=== PATIENT | female | born 1980 | race American Indian/Alaskan Native ===

== ENCOUNTER 2020-06-18 05:56 | Day surgery (SDC) | payer BC, OTHER ==
[2020-06-17 09:55] LABS: Hematocrit 36.4 % (30.3-42.9); Hemoglobin 12.3 gm/dl (10.1-14.3); Mean Corpuscular HGB Conc 34 % (30-34); Mean Corpuscular Volume 93 fl (79-97); Platelet Count 266 K/mm3 (140-440)
[2020-06-17 10:02] LABS: Red Cell Distribution Width 26.7 % (13.2-15.2)
--- NOTE | 2020-06-17 14:55 | History and Physical Report ---
History of Present Illness Date of examination: 06/16/20 History of present illness: Patient has been reassessed/reevaluated H&P has been reviewed. No interval changes. This is a 39 years old female who presents with menstrual disorder. The symptoms began >1 year ago. She complains of irregular menses, heavy bleeding, dysmenorrhea, clotting, fatigue and cramping, but denies mid-cycle spotting, lack of menses, history of ovarian cysts, history of thyroid disease, history of fibroids, history of PCOS, history of bleeding disorder and lightheadedness. Interval between menses is 15-20 days. Menstrual flow lasts > 7 days. Patient's work up has included hysterosonogram which revealed beign endometrial biopsy no myomas or intracavity lesions Patient desires definitive treatment Patient desires least invasive procedure Vital Signs: Patient Profile: 39 Years Old Female LMP: 05/29/2020 Height: 60.0 inches (152.40 cm) Weight: 179 pounds BMI: 34.95 Temp: 97.5 degrees F Menstrual History: LMP (date): 05/29/2020 Current Method of Contraception: None Past History : 6 Term Births: 3 Premature Births: 1 Living Children: 5 Para: 4 Mult. Births: 1 Prev : 2 Aborta: 2 Elect. Ab: 0 Spont. Ab: 2 Ectopics: 0 [employer] History Operations: Knee Arthroscopy (2015) (2004) with Tubal Ligation (2007) Transsphenoidal hypophysectomy (02/2019) Abnormal PAP: negative Uterine Anomaly: negative Infection History HIV Risk Eval: no Personal hx. of genital herpes: no Hx of STD: None Current Allergies (reviewed today): No known allergies Past Medical History: Anxiety Anemia Pituatary adenoma Past Surgical History: Knee Arthroscopy (2015) (2004) with Tubal Ligation (2007) Transsphenoidal hypophysectomy (02/2019) Family History Summary: Other Family Member - Has No Family History of Ovarvian Cancer - Glaucoma - Entered On: 07/09/2018 Other Family Member - Has Family History Colon Cancer - Glaucoma - Entered On: 07/09/2018 Other Family Member - Has Family History of Hypertension - Glaucoma - Entered On: 07/09/2018 General Comments - FH: No Family History of Breast Cancer 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 Risk Factors: Smoked Tobacco Use: Never smoker Smokeless Tobacco Use: Never Passive smoke exposure: no Drug use: no HIV high-risk behavior: no Caffeine use: 0 drinks per day Alcohol use: yes Type: occ Exercise: no Seatbelt use: 100 % Review of Systems General Complains of fatigue. Denies fever, chills, sweats, anorexia, weakness, malaise, weight loss and sleep disorder. Complains of menorrhagia and abnormal vaginal bleeding. Denies vaginal discharge, incontinence, dysuria, hematuria, urinary f requency, amenorrhea, pelvic pain, genital sores, decreased libido, painful periods, painful sex, urinary urgency, hot flashes, vaginal dryness, vaginal itching and vaginal odor. CV Denies chest pains, palpitations, syncope, dyspnea on exertion, orthopnea, PND and peripheral edema. Resp Denies cough, dyspnea at rest, excessive sputum, hemoptysis, wheezing and pleurisy. GI Denies nausea, vomiting, diarrhea, constipation, change in bowel habits, abdominal pain, melena, hematochezia, jaundice, gas/bloating, indigestion/heartburn, dysphagia and odynophagia. Breast Denies left breast lump, right breast lump, nipple discharge, bloody discharge from nipple, breast pain, abnormal mammogram and breast enlargement. Psych Denies depression, anxiety, irritability and mood swings. Pa Past History Past Medical History: other (SEE HPI) Past Surgical History: Other (SEE HPI) Social history: full code (SEE HPI) Family history: other (SEE HPI) Medications and Allergies Allergies Allergy/AdvReac Type Severity Reaction Status Date / Time No Known Allergies Allergy Unverified 06/11/20 14:10 Home Medications Medication Instructions Recorded Confirmed Last Taken Type Iron Fum,Ps/Folic/Bcomp,C No.9 1 each PO DAILY 06/11/20 06/18/20 06/17/20 20:00 History [Integra Plus Capsule] Sertraline [Zoloft] 100 mg PO QDAY 06/11/20 06/18/20 06/17/20 20:00 History Tranexamic Acid [Lysteda] 1,300 mg PO TID 06/11/20 06/18/20 06/17/20 20:00 History buPROPion [Wellbutrin] 100 mg PO DAILY 06/11/20 06/18/20 06/17/20 20:00 History Active Meds: Active Medications Lactated Ringer's (Lactated Ringers) 1,000 mls @ 100 mls/hr IV DIRECT SHIVAM Stop: 06/18/20 23:59 Midazolam HCl (Versed) 2 mg IV PREOP NR Stop: 06/18/20 23:00 Review of Systems Constitutional: other (SEE HPI) Exam - Physical Exam Narrative exam: HEENT: normocephalic, no lesions or deformities Skin no ulcers, xanthomas Chest: respiratory effort normal, clear to auscultation Breasts: no masses or nipple discharge CV: regular, normal S1-S2, no murmur, no rub, no gallop Abdomen: obese normal bowel sounds, soft, nontender, no HSM Well healed pfannenstiel scar Neuro: no gross anomalities Extremities: normal alignment, no joint enlargement, crepitus, masses or tenderness; normal tone and strength [employer] Exams Vulva/Vagina: No lesions, normal BUS, normal rugae Cervix: No lesions; no cervical motion tenderness Uterus: enlarged 10 to 12 weeks in size Adnexae: no masses or tenderness Rectovaginal: exam defered - Constitutional Vitals: Temp Pulse Resp BP Pulse Ox 98.6 F 86 20 150/97 100 06/17/20 09:30 06/17/20 09:30 06/17/20 09:30 06/17/20 09:30 06/17/20 09:30 Results - Labs CBC & Chem 7: 06/17/20 09:30 Labs: Abnormal lab results 06/17/20 Range/Units 09:30 RDW 26.7 H (13.2-15.2) % Assessment and Plan - Patient Problems (1) Menometrorrhagia Current Visit: No Status: Acute Plan to address problem: Medical and surgical treatment options discussed Patient desires definitive treatment Patient desires least invasive procedure Discussed risks and benefits of procedure. Informed endometrial ablation does not treat dymenorrhea or myomas. Patient does not desire future fertility Discussed risk of surgery including infection, bleeding and risk of perforating her uterus. Discuused postoperative symptom of vaginal duscharge and uterine cramping. Questions answered. Patient understands and desires to proceed (2) Anemia Current Visit: No Status: Acute Qualifiers: Anemia type: unspecified type Qualified Code(s): D64.9 - Anemia, unspecified Plan to address problem: Probably secondary to # 1 (3) Pituitary adenoma Current Visit: No Status: Chronic (4) Anxiety Current Visit: No Status: Chronic (5) BMI 34.0-34.9,adult Current Visit: No Status: Acute
[2020-06-18] MEDS ORDERED: LACTATED RINGERS 1,000 ML IV SCH (06:00)
[2020-06-18] MEDS ORDERED: MIDAZOLAM 2 MG/2 ML INJ IV NR (06:00)
[2020-06-18] MEDS ORDERED: BACTERIOSTATIC SODIUM CHLORIDE 0.9% 30 ML VIAL INFILTRATI ONE (06:25)
--- NOTE | 2020-06-18 07:19 | Anesthesia Consultation ---
Anesthesia Consult and Med Hx Date of service: 06/18/20 - Airway Anesthetic Teeth Evaluation: Good ROM Head & Neck: Adequate Mental/Hyoid Distance: Adequate Mallampati Class: Class II Intubation Access Assessment: Probably Good - Pre-Operative Health Status ASA Pre-Surgery Classification: ASA2 Proposed Anesthetic Plan: General - Central Nervous System Hx Seizures: No (s/p removal of piruitary adenoma) Hx Psychiatric Problems: Yes (Anxiety) - Hematic Hx Anemia: Yes - Other Systems Hx Alcohol Use: Yes (Occas) Hx Cancer: No Hx Obesity: Yes
--- NOTE | 2020-06-18 07:20 | Anesthesia Day of Surgery ---
Anesthesia Day of Surgery - Day of Surgery Patient Examined: Yes Patient H&P Reviewed: Yes Patient is NPO: Yes
[2020-06-18] MEDS ORDERED: LIDOCAINE MPF (2%) 20 MG/1 ML VIAL 5 ML ONE (07:37)
[2020-06-18] MEDS ORDERED: propofoL 200 MG/20 ML VIAL IV ONE (07:37)
[2020-06-18] MEDS ORDERED: PHENYLEPHRINE/NS 1,000 MCG/10 ML SYRINGE (OR USE) IV ONE (07:37)
[2020-06-18] MEDS ORDERED: dexAMETHasone 20 MG/5 ML VIAL ONE (07:37)
[2020-06-18] MEDS ORDERED: GLYCOPYRROLATE 0.4 MG/2 ML INJ ONE (07:37)
[2020-06-18] MEDS ORDERED: ONDANSETRON 4 MG/2 ML INJ ONE (07:37)
[2020-06-18] MEDS ORDERED: fentaNYL 100 MCG/2 ML INJ ONE (07:38)
[2020-06-18] MEDS ORDERED: FAMOTIDINE 20 MG/2 ML INJ IV NR (08:00)
[2020-06-18] MEDS ORDERED: SCOPOLAMINE TRANSDERMAL PATCH 72 HR TD NR (08:00)
[2020-06-18] MEDS ORDERED: SILVER NITRATE APPLICATOR 1 EA TP ONE ×2 (08:16→08:17)
[2020-06-18] MEDS ORDERED: SODIUM CHLORIDE 0.9% IRR 1,500 ML BOTTLE IR ONE (08:17)
--- NOTE | 2020-06-18 08:34 | Operative Report ---
Operative Report Operative Report: Date of procedure: June 18, 2020 Pre-operative diagnosis: Menorrhagia Post-operative diagnosis: Same Procedure name(s): NovaSure endometrial ablation with hysteroscopy Surgeon: Fuentes Lucas MD Profiling Machine Set Up Operator Tool: None Anesthesia: General EBL: Minimal Complications: None Findings: Patient with thickened endometrium. Both to both ostium was seen. Specimen(s): None Procedure: Patient was brought to operating room. Where general anesthesia was induced on difficulty. She was placed in the dorsal lithotomy position. Prepped and draped in usual sterile manner. Urinary bladder was emptied with a red rubber catheter. Speculum was placed in the vagina. The cervical length and uterine cavity was then assessed with a sound. Cervical length was 3.5 cm the total uterine cavity was 10 cm. The hysteroscope was then placed through the cervical os. With the findings as noted above. The NovaSure was then placed through the cervical os the uterine width was then measured at the 4.5 cm. After passing the testing for cavity integrity, and NovaSure ablation was then started. The power setting was at 161 and the procedure lasted 55 seconds. The NovaSure applicator was then removed. There was large amount of tissue on the NovaSure. Post procedure hysteroscopy showed a complete cavity ablation. Our instruments are removed. The patient tolerated the procedure well and was awakened in the operating room. Accompanied to recovery in good condition.
--- NOTE | 2020-06-18 08:40 | Short Stay Summary ---
Short Stay Documentation Date of service: 06/18/20 - History Past Medical History: other (SEE HPI) Past Surgical History: Other (SEE HPI) Social history: full code (SEE HPI) - Allergies and Medications Current Medications: Allergies No Known Allergies Allergy (Unverified 06/11/20 14:10) Home Medications Medication Instructions Recorded Confirmed Last Taken Type Iron Fum,Ps/Folic/Bcomp,C No.9 1 each PO DAILY 06/11/20 06/18/20 06/17/20 20:00 History [Integra Plus Capsule] Sertraline [Zoloft] 100 mg PO QDAY 06/11/20 06/18/20 06/17/20 20:00 History Tranexamic Acid [Lysteda] 1,300 mg PO TID 06/11/20 06/18/20 06/17/20 20:00 History buPROPion [Wellbutrin] 100 mg PO DAILY 06/11/20 06/18/20 06/17/20 20:00 History DOXYCYCLINE Hyclate [Vibramycin 100 mg PO Q12HR #14 capsule 06/18/20 Unknown Rx CAP] Ibuprofen [Motrin 800 MG tab] 800 mg PO Q6H PRN #30 tablet 06/18/20 Unknown Rx Active Medications Famotidine (Pepcid) 20 mg IV PREOP NR Stop: 06/18/20 23:59 Last Admin: 06/18/20 07:25 Dose: 20 mg Documented by: Hydromorphone HCl (Dilaudid) 0.5 mg IV Q10MIN PRN PRN Reason: Pain , Severe (7-10) Stop: 06/18/20 23:00 Lactated Ringer's (Lactated Ringers) 1,000 mls @ 100 mls/hr IV DIRECT SHIVAM Stop: 06/18/20 23:59 Last Admin: 06/18/20 06:35 Dose: 100 mls/hr Documented by: Midazolam HCl (Versed) 2 mg IV PREOP NR Stop: 06/18/20 23:00 Last Admin: 06/18/20 07:27 Dose: 2 mg Documented by: Scopolamine (Transderm-Scop) 1 each TD PREOP NR Stop: 06/18/20 23:59 Last Admin: 06/18/20 07:25 Dose: 1 each Documented by: - Physical exam General appearance: no acute distress Integumentary: no rash HEENT: Atraumatic Lungs: Normal air movement Breasts: deferred Heart: Regular rate Gastrointestinal: normal Female Genitourinary: normal Rectal Exam: deferred Extremities: no ischemia, pulses intact Neurological: Normal speech - Brief post op/procedure progress note Date of procedure: 06/18/20 (See dictated operative note) - Hospital course Hospital course: Patient was admitted underwent the above him procedure without any complications. Patient will be discharged with follow-up in office in 1-2 weeks for postop check. - Disposition Condition at discharge: Good Disposition: DC-01 TO HOME OR SELFCARE - Discharge Diagnoses (1) Menometrorrhagia Status: Acute (2) Anemia Status: Acute Qualifiers: Anemia type: unspecified type Qualified Code(s): D64.9 - Anemia, unspecified (3) Pituitary adenoma Status: Chronic (4) Anxiety Status: Chronic (5) BMI 34.0-34.9,adult Status: Acute Short Stay Discharge Plan Activity: advance as tolerated Diet: regular Additional Instructions: Prescriptions transmitted electronically to pharmacy on her chart Follow up with: DHRUV AMAYA MD [Primary Care Provider] - 7 Days Prescriptions: Ibuprofen [Motrin 800 MG tab] 800 mg PO Q6H PRN #30 tablet PRN Reason: Pain DOXYCYCLINE Hyclate [Vibramycin CAP] 100 mg PO Q12HR #14 capsule
[2020-06-18] MEDS: HYDROmorphone 1 MG/1 ML INJ IV PRN ×2 (08:53→09:01)
[2020-06-18 09:25] VITALS: BP 141/89
--- NOTE | 2020-06-18 10:44 | Post Anesthesia Evaluation ---
- Post Anesthesia Evaluation Patient Participated: Yes Airway Patent: Yes Stable Respiratory Function: Yes Nausea/Vomiting: No Temp > 96.8F: Yes Pain Manageable: Yes Adequeate Hydration: Yes Anesthesia Complications: No
== END 2020-06-18 05:57 | disposition home or self-care (01) ==
LOC: OR 05:56
PROVIDERS: ATTEND Obstetrics & Gynecology
DX: N92.0 Excessive and frequent menstruation with regular cycle (principal); Z20.828 Contact with and (suspected) exposure to other viral communicable diseases; D64.9 Anemia, unspecified; F41.9 Anxiety disorder, unspecified; D35.2 Benign neoplasm of pituitary gland; E66.9 Obesity, unspecified; M19.90 Unspecified osteoarthritis, unspecified site; F32.9 Major depressive disorder, single episode, unspecified; Z79.899 Other long term (current) drug therapy; Z98.891 History of uterine scar from previous surgery; Z98.890 Other specified postprocedural states; Z68.34 Body mass index [BMI] 34.0-34.9, adult
CPT/HCPCS: 36415; 58563; 84703; 85027; J1100; J1170; J2250; J2370; J2405; J2704; J3010; J7120; U0003